=== PATIENT | male | born 1960 | race Caucasian/White ===

== ENCOUNTER 2023-10-03 17:50 | Emergency (ER) | payer SELFPAY ==
[2023-10-03 17:53] VITALS: BP 120/89; PULSE 76; RESP 18; TEMP 36.3; O2SAT 96; BMI 24.4
--- NOTE | 2023-10-03 18:35 | EDS_ITS ---
HPI <LORENZO Gillette - Last Filed: 10/03/23 18:46> History of Present Illness Chief Complaint: Bite Narrative Narrative: Patient is a 63-year-old male with no significant medical history presents to the emergency department with concerns of a left leg dog bite. Patient states that he went to a person's residence to look at a car, the family dog sniffed his leg and bit his calf. Patient has 2 puncture wounds to the lower calf. Patient states this happened on Thursday. That day, the patient went to [facility], secondary to it being so busy he left. Patient then went back there on Thursday, received IV antibiotics, oral antibiotics, and a tetanus vaccination. Patient is here today because he was told that the dog may have not had his shots. Have the dog is acting appropriate. Patient is here for reevaluation of his wound. Denies any fever or chills. PFSH <LORENZO Gillette - Last Filed: 10/03/23 18:46> PFS Allergy/AdvReac Type Severity Reaction Status Date / Time No Known Allergies Allergy Verified 10/03/23 17:52 Social History Smoking Status: Never smoker ROS <LORENZO Gillette - Last Filed: 10/03/23 18:46> ROS ED ROS Narrative Constitutional: Negative for fever, chills, weight loss, weakness Eyes: Negative for vision loss, vision change, double vision ENT: Negative for any sore throat, ear pain, congestion Cardiovascular: Negative for any chest pain, tightness, palpitations Respiratory: Negative for any cough, sputum production, hemoptysis, dyspnea, dyspnea on exertion, orthopnea Gastrointestinal: Negative for any abdominal pain, nausea, vomiting, diarrhea, constipation, blood in stool, blood in vomit : Negative for any urinary frequency, dysuria, retention, blood in urine Muscle skeletal: Negative for any neck pain, back pain. Positive for left leg pain, left leg wound Neurological: Negative for any headache, syncope, dizziness Skin: Negative for any rashes, itching, abrasions, lacerations Psychiatric: Negative for any depression, anxiety, stress, suicidal ideation, homicidal ideation Hematologic: Negative for any excessive bruising, easy bleeding EXAM <LORENZO Gillette Last Filed: 10/03/23 18:46> Physical Exam Narrative Exam Narrative: Vital signs reviewed. HEET: Head normocephalic atraumatic, TMs clear bilaterally. Posterior pharynx is clear, moist mucous membranes. Nares clear bilaterally. Neck: Supple with no lymphadenopathy or tenderness. No signs of meningismus. Cardiac: Regular rate and rhythm no murmurs gallops or rubs, equal peripheral pulses bilaterally. Respiratory: Lungs clear to auscultation bilaterally. No chest tenderness. Abdomen: Soft, nontender, nondistended. No abdominal bruit or pulsatile masses. No hepatosplenomegaly Extremities: No peripheral edema, no signs of gross trauma or deformity. Active full range of motion of all extremities. Patient does have a puncture felipe to the medial aspect of the left lower calf, there is some erythema, some cellulitis, some dependent edema. There is no gross drainage. Neuro: Cranial nerves II through XII intact, no focal neurological deficits. Skin: Clean dry and intact with no rash, purpura, petechiae, vesicles or pustules. Backs/flank: No CVA tenderness, no midline spinal tenderness, no deformity. Psych: Normal mood and affect. No SI, HI or acute psychosis. Const Vital Signs: 10/03/23 17:53 Temperature 97.4 F L Temperature Source Temporal Pulse Rate 76 Respiratory Rate 18 Blood Pressure 120/89 H Blood Pressure Mean 99 Pulse Ox 96 Oxygen Delivery Method Room Air <Dr. Jaylan Morris DO - Last Filed: 10/03/23 18:52> Physical Exam Const Vital Signs: 10/03/23 17:53 Temperature 97.4 F L Temperature Source Temporal Pulse Rate 76 Respiratory Rate 18 Blood Pressure 120/89 H Blood Pressure Mean 99 Pulse Ox 96 Oxygen Delivery Method Room Air [facility] <LORENZO Gillette - Last Filed: 10/03/23 18:46> [facility] Treatment and Re-Evaluation :: Differential diagnosis includes however is not limited to: Cellulitis, dog bite foreign body, compartment syndrome, failed outpatient therapy Patient is in no obvious respiratory distress vital signs are stable, patient appears generally well. Patient presents to the emergency department with redness to the left lower leg including a puncture felipe from a dog bite. Patient has only taken 1 dose of oral antibiotics, this is and lieu of 1 dose of IV antibiotics on Thursday evening. At this time, I do not believe that the patient is suffering from significant cellulitis, I believe there is a lot more dependent edema. Patient will continue his oral antibiotics. Patient is in con tact with a person who had the dog, the plan will be to watch the dog for 10 days, per the corporate training manager, the dog is acting appropriate at this time. I do not believe the patient meets criteria for rabies vaccination. Patient is agreeable, patient will continue to take the antibiotics, ice and elevate. He is happy with the plan of care, was given strict return precaution to return for any worsening fever chills, at this time, patient is stable for discharge. <Dr. Jaylan Morris, DO - Last Filed: 10/03/23 18:52> [facility] Narrative Medical decision making narrative: I have personally performed a face to face assessment of the patient and have reviewed the DANIEL Note. I performed a substantive portion of the visit including all aspects of the following. My renae findings include: History: Patient presents with dog bite to his left lower leg that occurred 3 days ago. Patient states he was bitten by somebody's pet. Patient states that the dog has not been immunized. However, patient states that he has been in contact with the corporate training manager of the dog and the dog is acting normally. Patient states that the dog will be euthanized on Thursday per a court order. Patient was started on antibiotics yesterday. Patient denies any fevers or chills. Patient denies any discharge or drainage. Exam: Vital signs are stable. Patient is afebrile. Patient is in no acute distress. Skin is warm dry. There is erythema and warmth over the left lower leg. There are open wounds on the medial and posterior aspects of the left lower leg. There is no purulent discharge or drainage noted. Achilles tendon is intact. There is good range of motion. Sensation was intact to light touch bilaterally in the lower extremities. Strength is 5/5 bilaterally in the lower extremities. Pedal pulses are equal bilaterally. Medical Decision Making: Patient states he was advised to come to [facility] for rabies vaccine. Patient was advised that since the dog is able to be watched for 10 days, I do not recommend rabies vaccination at this time. Patient was advised that there has not been a transmission of rabies from a domesticated dog to a human in many years. Patient was instructed to continue his antibiotics as previously prescribed. Patient was instructed to follow-up with his primary care physician in 5 to 7 days. Patient understood and was agreeable with the plan. All questions were answered. Discharge Plan Triage Chief Complaint: Bite ED Midlevel Provider: Emeka Dorsey ED Provider: Jaylan Morris Dx/Rx/DC Orders Clinical Impression: Dog bite of calf, Cellulitis Instructions: ED Animal Bite (General), ED Cellulitis, ED Dog Bite Primary Care Provider: NOT,DEFINED Referrals: NOT,DEFINED [Primary Care Provider] - Activity Restrictions/Additional Instructions: Keep the area clean and dry. Take the antibiotics until finished. The bottle needs to be thrown away empty. If the redness gets worse, more painful please return for any worsening symptoms Print Language: Occitan Disposition Disposition: Home, Self Care
== END 2023-10-03 19:11 | disposition home or self-care (01) ==
LOC: ED 18:50
PROVIDERS: Emergency Provider Emergency Medicine; Visit Provider Emergency Medicine
DX: S81.852A Open bite, left lower leg, initial encounter (principal); L03.112 Cellulitis of left axilla; W54.0XXA Bitten by dog, initial encounter
CPT/HCPCS: 99283